=== PATIENT | male | born 1985 | race Two or more races ===

== ENCOUNTER 2023-09-13 17:53 | Emergency (ER) | payer BC ==
[~2023-09-13] VITALS: Ht 177.8 cm; Wt 109.1 kg
[2023-09-13 18:10] VITALS: TEMP 98
[2023-09-13 20:07] VITALS: BP 118/73; PULSE 84; RESP 18
== END 2023-09-13 20:46 | disposition home or self-care (01) ==
LOC: EMS 17:57
DX: K40.90 Unilateral inguinal hernia, without obstruction or gangrene, not specified as recurrent (principal)
CPT/HCPCS: 99281; Z7502